=== PATIENT | female | born 1995 | race Caucasian/White ===

== ENCOUNTER 2024-02-25 15:05 | Outpatient (CLI) | payer OTHER, SELFPAY ==
--- NOTE | ~2024-02-25 | US_ITS ---
EXAMINATION: US OB <=14 wk fetus w TV DATE: 02/25/2024 15:45 INDICATION: Uncertain dates. Spotting. First trimester. TECHNIQUE: Real-time transabdominal and transvaginal pelvic ultrasound was performed. COMPARISON: None. FINDINGS: TRANSABDOMINAL ULTRASOUND: The uterus measures 7.8 x 3.6 x 4.7 cm. TRANSVAGINAL ULTRASOUND: There is no visible intrauterine gestational sac. The endometrial complex me asures 9 mm in thickness. The right ovary measures 3.6 x 2.6 x 3.37 m. The left ovary measures 3.5 x 3.0 x 2.4 cm. There is physiologic free fluid in the pelvis. IMPRESSION: 1. No visible intrauterine gestational sac, which may be normal in early . Spontaneous abor tion and ectopic are not excluded. Serial beta-hCGs are recommended. Reviewed, dictated and finalized at location A. IMPRESSION: 1. No visible intrauterine gestational sac, which may be normal in early pregn dusty. Spontaneous and ectopic are not excluded. Serial beta- hCGs are recommended.
== END 2024-02-25 15:06 ==
PROVIDERS: PCP Advanced Practice Midwife; Visit Provider Advanced Practice Midwife
DX: O26.851 Spotting complicating pregnancy, first trimester (principal); Z36.87 Encounter for antenatal screening for uncertain dates; Z3A.00 Weeks of gestation of pregnancy not specified
CPT/HCPCS: 76801; 76817

== ENCOUNTER 2024-06-26 07:48 | Outpatient (CLI) | payer OTHER, SELFPAY ==
--- NOTE | ~2024-06-26 | US_ITS ---
EXAMINATION: US OB transvaginal DATE: 06/26/2024 08:30 INDICATION: Evaluate viability. History of miscarriage. TECHNIQUE: Real-time transabdominal and transvaginal obstetric ultrasound. FINDINGS: No prior studies for comparison. The uterus measures 8.7 x 5 x 6.2 cm. There is an intrauterine gestational sac, with pole ident ified. The crown rump length measures 0.21 cm, which correlates with a estimated gestational age of 5 weeks 5 days. heart motions are detected, although heart rate not measured. There is a small subchorionic hemorrhage. Right ovary measures 3.3 x 3 x 2.9 cm and contains a 2.4 cm corpus l uteal cyst. Left ovary is not visualized. IMPRESSION: 1. Intrauterine Gestation with an EGA of 5 weeks, 5 days (EDC by current ultrasound of 02/21/2025). 2: Small subchorionic hemorrhage. Reviewed, dictated and finalized at location B. IMPRESSION: 1. Intrauterine Gestation with an EGA of 5 weeks, 5 days (EDC by current ultras ound of 02/21/2025). 2: Small subchorionic hemorrhage.
== END 2024-06-26 07:49 | disposition home or self-care (01) ==
PROVIDERS: PCP Obstetrics & Gynecology Gynecology; Visit Provider Obstetrics & Gynecology Gynecology
DX: Z87.59 Personal history of other complications of pregnancy, childbirth and the puerperium (principal); Z3A.01 Less than 8 weeks gestation of pregnancy
CPT/HCPCS: 76817

== ENCOUNTER 2024-07-09 11:21 | Outpatient (CLI) | payer OTHER, SELFPAY ==
--- NOTE | ~2024-07-09 | US_ITS ---
Pelvic ultrasound. Clinical History: First trimester , several adjacent viability Technique: Realtime transabdominal and transvaginal scanning of the pelvis was performed. Color flow Doppler and Doppler spectral analysis were performed. Findings: The uterus is anteverted, and contains an intrauterine gestation. [place]-rump length of 1.2 cm corresponds to an estimated gestational age is 7 weeks 3 days. heart rate is 157 bpm. Small subchronic hemorrhage measures 12 mm in maximum diameter. The right ovary measures 2.4 x 2.2 x 2.9 cm. No significant right ovarian or adnexal mass is seen. The left ovary is not visualized. No significant left ovarian or adnexal mass is seen. There is no evidence of free fluid in the cul de sac. Impression: Live intrauterine gestation, with estimated gestational age of 7 weeks 3 days. heart rate is 15 7 bpm. Small subchorionic hemorrhage, as detailed above. Reviewed, dictated and finalized at [facility]. Impression: Live intrauterine gestation, with estimated gestational age of 7 weeks 3 days. heart rate is 157 bpm. Small subchorionic hemorrhage, as detailed above.
== END 2024-07-09 11:22 | disposition home or self-care (01) ==
LOC: GOSHIMG 11:21
PROVIDERS: PCP Obstetrics & Gynecology Gynecology; Visit Provider Advanced Practice Midwife
DX: O36.80X0 Pregnancy with inconclusive fetal viability, not applicable or unspecified (principal); Z3A.01 Less than 8 weeks gestation of pregnancy
CPT/HCPCS: 76801; 76817

== ENCOUNTER 2024-08-09 15:43 | Outpatient (CLI) | payer OTHER, SELFPAY ==
--- NOTE | ~2024-08-09 | US_ITS ---
EXAMINATION: US OB limited DATE: 08/09/2024 16:03 INDICATION: Subchorionic hematoma TECHNIQUE: Real-time pelvic ultrasound utilizing both a transvaginal and transabdominal probe was pe rformed. The interpreting radiologist was not present for the study. COMPARISON: None. FINDINGS: The uterus measures 10.5 x 6.8 x 8.2 cm. There is an intrauterine gestational sac. A yolk sac and fe helga pole are identified. The crown rump length measures 5.2 cm, which is concordant within 1 day of t he previously estimated gestational age of 12 weeks and 0 days based upon the prior ultrasound perfor med on 06/26/2024. heart motion is identified measuring 155 beats per minute (bpm) by M-mode Dop pler. No evident subchorionic hematoma although assessment is more limited with transabdominal than w ith the prior transvaginal imaging. IMPRESSION: 1. Single living fetus with heart rate of 155 bpm. 2. [place]-rump length of 5.2 cm which is concordant within 1 day of the previously estimated gestation al age by ultrasound of 12 weeks 0 day(s) with ultrasound estimated date of delivery (JOVITA) of 02/21/25 . No evident 3. No evident subchorionic hematoma although sensitivity is likely lower with transabdominal than wit h the prior transvaginal imaging. Reviewed, dictated and finalized at location B. ER TIP INSPECTOR IMPRESSION: 1. Single living fetus with heart rate of 155 bpm. 2. [place]-rump length of 5.2 cm which is concordant within 1 day of the previous ly estimated gestational age by ultrasound of 12 weeks 0 day(s) with ultrasound estimated date of delivery (JOVITA) of 02/21/25. No evident 3. No evident subchorionic hematoma although sensitivity is likely lower with t ransabdominal than with the prior transvaginal imaging.
== END 2024-08-09 15:44 | disposition home or self-care (01) ==
LOC: MICIMG 15:44
PROVIDERS: PCP Obstetrics & Gynecology Gynecology; Visit Provider Obstetrics & Gynecology Gynecology
DX: O36.8910 Maternal care for other specified fetal problems, first trimester, not applicable or unspecified (principal); Z3A.12 12 weeks gestation of pregnancy
CPT/HCPCS: 76815

== ENCOUNTER 2024-09-28 11:22 | Outpatient (CLI) | payer BC, SELFPAY ==
--- NOTE | ~2024-09-28 | US_ITS ---
EXAMINATION: US OB /maternal detail DATE: 09/28/2024 12:29 INDICATION: anatomic survey. TECHNIQUE: Real-time ultrasound of the pelvis was performed. COMPARISON: Ultrasound 06/26/2024, 08/09/2024 FINDINGS: There is a single living fetus in breech presentation. The placenta is anterior and fundal, 5.4 cm f rom the cervix. The cervical length is 2.8 cm on transabdominal images, which is normal. heart rate is 143 beats per minute (bpm). The amniotic fluid volume is subjectively normal. The following biometric data were obtained: Biparietal diameter (BPD): 4.5 cm; head circumference (HC): 16.8 cm; abdominal circumference (AC): 14 .3 cm; femur length (FL): 3.1 cm. These measurements are concordant. Estimated weight is 300 g +/- 45 g, which correlates with the 71st percentile when 02/21/25 is u sed as estimated date of delivery. As single measurements, these parameters are each equal to the following estimated gestational ages: BPD: 19 weeks 5 days. HC: 19 weeks 3 days. AC: 19 weeks 4 days. FL: 19 weeks 4 days. estimated gestational age based solely on measurements from this exam is 19 weeks 4 days +/- 1 weeks 3 days. The cerebral ventricles, cerebellum, cisterna magna, nuchal fold, and spine are normal. The heart is normal. The diaphragm, stomach, kidneys, and bladder are normal. There are two umbilical arteries to yield a 3-vessel cord. The cord insertion is normal. IMPRESSION: 1. Single living fetus in breech presentation. 2. Estimated weight is 300 g +/- 45 g, which correlates with the 71st percentile when 02/21/25 is used as estimated date of delivery. 3. Normal anatomic survey. Reviewed, dictated and finalized at location [] RMATION TECHNOLOGY AUDIT MANAGER IMPRESSION: 1. Single living fetus in breech presentation. 2. Estimated weight is 300 g +/- 45 g, which correlates with the 71st pe rcentile when 02/21/25 is used as estimated date of delivery. 3. Normal anatomic survey.
== END 2024-09-28 11:23 | disposition home or self-care (01) ==
LOC: MICIMG 11:23
PROVIDERS: PCP Obstetrics & Gynecology Gynecology; Visit Provider Obstetrics & Gynecology Gynecology
DX: O36.63X0 Maternal care for excessive fetal growth, third trimester, not applicable or unspecified (principal); Z3A.00 Weeks of gestation of pregnancy not specified
CPT/HCPCS: 76805

== ENCOUNTER 2025-02-16 16:14 | Inpatient (IN) | payer BC, SELFPAY ==
[2025-02-16] VITALS (50 sets, daily range): BP systolic 101–154; BP diastolic 57–93; PULSE 46–110; TEMP 36.4; O2SAT 88–100; BMI 36.3
--- OUTSIDE RECORDS SUMMARY | 2025-02-16 16:18 | XMS_ITS | Clinical Summary ---
Author Organization [facility] Address [address] [place] [facility] [place] [address] Care Team Providers Care Care Administrative Tech Name Role Phone Unknown, Notinfile Primary Care Provider Unavail able Allergies No known active allergies Medications fexofenadine (Milla Allergy) 180 mg tablet daily Active triamcinolone (Nasacort) 55 mcg nasal inhaler daily Active olopatadine (PATADAY) 0.2 % ophthalmic solution daily Active EPINEPHrine (Auvi-Q) 0.3 mg/0.3 mL auto-injection syringe as directed 07/30/2022 Active albuterol HFA (PROVENTIL HFA,VENTOLIN HFA,PROAIR HFA) 90 mcg/actuation inhaler 2 puff(s) Active Active Problems No known active problems Immunizations Immunization Administration Dates Next Due Tdap 01/26/2023,04/29/2013 Social History Tobacco Use Types Packs/Day Years Used Date Smoking Tobacco: Never Smokeless Tobacco: Never Personal Safety Answer Date Recorded Getting School Help Needed Not on file 11/29 Comments Unknown Sex and Gender Information Value Date Recorded Sex Assigned at Not on file Legal Sex Female 9:15 AM CDT Gender Identity Not on file Sexual Orientation Not on file Obstetrics History Last Filed Vital Signs Vital Sign Reading Time Taken Comments Blood Pressure 104/66 01/26/2023 9:24 AM CDT Pulse 97 01/26/2023 9:24 AM CDT Temperature 35.9 C (96.7 F) 01/26/2023 9:24 AM CDT Respiratory Rate 16 01/26/2023 9:24 AM CDT Oxygen Saturation 99% 01/26/2023 9:24 AM CDT Inhaled Oxygen Concentration - - Weight 108.9 kg (240 lb) 01/26/2023 9:24 AM CDT Height 180.3 cm (5' 11 ) 01/26/2023 9:24 AM CDT Body Mass Index 33.47 01/26/2023 9:24 AM CDT Plan of Treatment Health Maintenance Due Date Last Done Comments Cervical Cancer Screening 1995 Depression Screening 1995 Hepatitis C Screening 1995 Varicella Vaccines (1 of 2 - 13+ 2-dose series) 01/20/2008 Hepatitis B Screening 2013 Regular Well Visit/Exam 18-64 2013 Covid-19 Vaccine (2023-2 5 season) 2024 10/03/2021, 01/24/2021, 01/02/2021 Influenza Vaccine (Season Ended) 2025 DTaP/Tdap/Td Vaccine (3 - Td or Tdap) 01/26/2033 01/26/2023, 04/29/2013 HPV Vaccines Aged Out No longer eligi ble based on patient's age to complete this topic Pneumococcal vaccine <65 Aged Out No longer eligible based on patient's age to complete this topic Insurance [facility]PPO Address: [facility] [address] [place] [address] Care Teams Care Administrative Tech Relationship Specialty Start Date End Date Unknown, Notinfile PCP - General 01/26/23
--- OUTSIDE RECORDS SUMMARY | 2025-02-16 16:18 | XMS_ITS ---
Author Organization [facility] [place] ([address]) Address [address] [place] [address] Care Team Providers Care Exterminator Helper Name Role Phone Mario Jorgensen Unavailable [phone] REASON FOR VISIT SOB with exercise and allergen triggers, keeps EBONI on hand; using 1-2 times a month, ARC , continues Milla and Nasacort, continues on SCIT without issue; again recently found to be , looking for further recs regarding SCIT dosing Medications Medication SIG (Take, Route, Frequency, Duration) Notes Start Date End Date Status CETIRIZINE Not-Takin g metFORMIN HCl ER 500 MG 2 tabs orally once a day Active Cetirizine HCl *Please review and pick correct strength-formulat ion from [employer] options. If intended option is not shown, discontinue and re-order from Quick Search* Active Auvi-Q 0.3 MG/0.3ML as directed intramuscularly once for 30 days Active Nasacort Allergy 24HR 55 MCG/ACT 1 spray(s) intranasally once a day Active 27-1 MG 1 tablet Orally Once a day Active SIT (TRADITIONAL) variable per schedule per schedule for 999 days Active AUVI -Q 0.3 mg as directed intramuscularly once for 30 days Active Milla Allergy 180 MG 1 tab(s) orally once a day Not-Taking Olopatadine HCl 0.2 % 1 gtt in each affected eye once a day for 10 day(s) Active AEROCHAMBER MDI SPACER - MOUTHPIECE (ADULT) N/A As directed PO Per asthma action plan for 30 day(s) Active ALBUTEROL (EQV-PROAIR HFA) 90 mcg/inh 2 puff(s) inhaled Q4-6 hours, PRN and per the asthma action plan for 30 day(s) Active NASACORT ALLERGY 24HR 55 mcg/inh 1 spray(s) intranasally once a day Active MILLA 24 HOUR ALLERGY 180 mg 1 tab(s) orally once a day Active NASAL WASHES N/A as directed intranasally as needed for 30 Active OLOPATADINE OPHTHALMIC 0.2% 1 gtt in each affected eye once a day for 10 day(s) Active METFORMIN 500 mg 1 tab(s) orally once a day Not-Taking Encounters Encounter Location Date Provider Diagnosis [facility] [address] [place] [address] 12/28/2024 Mario Jorgensen Allergic rhinitis du e to pollen J30.1 ; Allergic rhinitis due to animal (cat) (dog) hair and dander J30.81 ; Other allergic rhinitis J30.89 ; Other chronic allergic conjunctivitis H10.45 and Shortness of breath R06.02 Assessments Encounter Date Diagnosis (ICD Code) Assessment Notes Treatment Notes Treatment Clinical Notes Section Notes 12/28/2024 Allergic rhinitis due to pollen (ICD-10 - J30.1) Tri clearly suffers from atopic disease based upon our skin testing. - continues on medications with improved symptoms as well as SCIT - tolerating SCIT without issue. She recently again found out she was . Will plan to hold MM at 1:1, 0.1 moving forward until post-. Current on new vial build-up at the dose so plan to receiving that dose for one more week before moving [facility] the [facility]. Procedure tolerated without issue - Keep AIE on hand 2 hours after SCIT. Continue to premedicate with antihistamines. Return for SCIT per schedule and 4 months for E&M. Increase SCIT frequency in peak seasons PRN 12/28/2024 Allergic rhinitis due to animal (cat) (dog) hair and dander (ICD-10 - J30.81) Follow allergen avoidance, meds and continue SCIT as an adjunctive treatment to current regimen 12/28/2024 Other allergic rhinitis (ICD-10 - J30.89) 12/28/2024 Other chronic allergic conjunctivitis (ICD-10 - H10.45) Given ocular signs and symptoms I encouraged allergy avoidance measures and meds as above. Continue intraocular antihistamine/m ast cell stabilizer, PRN and continue SCIT as an adjunctive measure 12/28/2024 Shortness of breath (ICD-10 - R06.02) SOB described as difficulty getting air in, with associated wheezing when running outside - Initial Spirometry is normal with FVL suggestive of VCD and slight small airway obstruction. VCD handout already provided - She has felt benefit with use of VCD exercises. Generally using EBONI ocne a month with resoluton. Spriometry today was comparable to last last with mild blunting noted on spirometry. If EBONI use persists consider addition of Singulair and/or ICS trial if symptoms worsen given she has history of allergen induced symptoms as well. Will continue to monitor. Cotinue SCIT as above Plan Of Treatment Medication Medication Name Sig Start Date Stop Date Notes SIT (TRADITIONAL) variable per schedule per schedule for 999 days AUVI -Q 0.3 mg as directed intramus cularly once for 30 days AEROCHAMBER MDI SPACER - MOUTHPIECE (ADULT) N/A As directed PO Per asthma action plan for 30 day(s) ALBUTEROL (EQV-PROAIR HFA) 90 mcg/inh 2 puff(s) inhaled Q4-6 hours, PRN and per the asthma action plan for 30 day(s) NASACORT ALLERGY 24HR 55 mcg/inh 1 spray(s) intranasally once a day IMLLA 24 HOUR ALLERGY 180 mg 1 tab(s) orally once a day NASAL WASHES N/A as directed intranas ally as needed for 30 OLOPATADINE OPHTHALMIC 0.2% 1 gtt in eac h affected eye once a day for 10 day(s) Treatment Notes Assessment Notes Allergic rhinitis due to pollen Tri clearly suffers from atopic disease based upon our skin testing. - continues on medications with improved symptoms as well as SCIT - tolerating SCIT without issue. She recently again found out she was . Will plan to hold MM at 1:1, 0.1 moving forward until post-. Current on new vial build-up at the dose so plan to receiving that dose for one more week before moving out the critical access hospital. Procedure tolerated without issue - Keep AIE on hand 2 hours after SCIT. Continue to premedicate with antihistamines. Return for SCIT per schedule and 4 months for E&M. Increase SCIT frequency in peak seasons PRN Allergic rhinitis due to ani mal (cat) (dog) hair and dander Follow allergen avoidance, meds and continue SCIT as an adjunctive treatment to current regimen Other chronic allergic conjunctivitis Gi shiraz ocular signs and symptoms I encouraged allergy avoidance measures and meds as above. Continue intraocular antihistamine/mast cell stabilizer, PRN and continue SCIT as an adjunctive measure Shortness of breath SOB described as difficulty getting air in, with associated wheezing when running outside - Initial Spirometry is normal with FVL suggestive of VCD and slight small airway obstruction. VCD handout already provided - She has felt benefit with use of VCD exercises. Generally using EBONI ocne a month with resoluton. Spriometry today was comparable to last last with mild blunting noted on spirometry. If EBONI use persists consider addition of Singulair and/or ICS trial if symptoms worsen given she has history of allergen induced symptoms as well. Will continue to monitor. Cotinue SCIT as above Next Appt Details Follow Up: as scheduled, 6 m [facility], Reason: SCIT, Evaluation and Management Progress Notes * Mayela BOYDTammyB: 5 (30 yo F)Acc No.[id number]:12/28/2024 Progress Notes Patient: Tri OSBORN Provider: Chapin Jorgensen PA-C :1995 A ge:29 Y S ex:Female Date:12/28/2024 Address:[address] [place], [place] [id number] Subjective: * Chief Complaints: * 1 . SOB with exercise and allergen triggers, keeps EBONI on hand; using 1-2 times a month. 2. ARC , continues Milla and Nasacort, continues on SCIT without issue; again recently found to be , looking for further recs regarding SCIT dosing. * HPI: * Introduction: I had the pleasure of seeing A oneida Boyd, 29 y/o female with history of exercise-induced asthma and ARC who returns for interval evaluation and management and SCIT. She returns doing well. Aeroallergen skin testing was completed at first visit, and was positive to multiple seasonal and perennial allergens. Continues Milla and Nasacort with benefit. She continues on SCIT with noted improvement on MM dosing. Initial symptoms started around 2014 with dogs and cats first, then progressed to seasonal symptoms. She does have constant eye watering, worse in Winter or when she travels to different environments. There are 2 cats in the home, symptoms of lip swelling/itching when around her face, itching and swelling. Notes only ocular symptoms if she touches them then touches her face. Dogs cause rhinorrhea, sneezing, itchy watery eyes, and congestion. She recently found out she was again after prior miscarriage and is looking for further recs regarding SCIT. She notes chest tightness around prolonged animal exposure, but symptoms have improved since initial visit. Using EBONI approx once a month in additional to VCD exercises she feels has been beneficial. Initial spirometry with mild obstruction on end exhalation, and evidence of VCD. Otherwise, normal. No interval wheezing. Historically with SOB, difficulty getting air in. Present with outdoor running and indoor allergen exposure. Feels VCD exercises has been helpful. Seldomly uses EBONI. Minimal concerns noted today. Today, she reports no fevers, chills, night sweats or other constitutional symptoms. The patient is here for scheduled specific allergen immunotherapy. Please see the attached specialty form regarding the specifics of the administration of these vaccines. As per our protocol, they must undergo a screening health questionnaire (medication changes, reaction(s) to last immunotherapy dose(s), current health status, ACT (if appropriate), self-injectable epinephrine on patient(?) and peak flow (if appropriate)). Also, the patient must wait in our office for 30 minutes after receiving immunotherapy. Furthermore, every patient must have an epinephrine pen (self-injectable) with them at the time of administration--and carry if for the following 1.5 hours after they leave our office. The patient must also have taken their antihistamine the day of the injection, preferably 2 hours prior. The consent form for SCIT (subcutaneous immunotherapy) is on file. * ROS: A LLERGY: Positive p er the HPI and history, otherwise unremarkable.?runny nose Y es. s cratchy throat N o. i tchy eyes Y es. e ar fullness?No. s inus congestion Y es. S PECIAL SENSES: Positve for n one. c ataracts N o. g laucoma?No. l oss of hearing N o. i tching in ears N o. r inging in ears N o.?loss of balance N o. l oss of smell N o. d ry eyes N o. e xcessive tearing Yes. i tching eyes Y es. l oss of taste N o. c onjunctivitis N o. e ar infections N o. C ONSTITUTIONAL: weight gain Y es. l oss of appetite N o. f ever?No. w eakness N o. w eight loss N o. f atigue N o. n ight sweats?No. P ositive for n one. E NT: cold Y es. c ough N o. e pistaxis N o. h earing loss N o. c hange in voice N o. s ore throat N o. r inging in ears?No. s inus pain N o. P ositive p er the HPI and history, otherwise unremarkable. R ESPIRATORY: shortness of breath Y es. c hest pain N o. c hest congestion N o. c ough N o. P ositive p er the HPI and history, otherwise unremakable. O PHTHALMOLOGY: diminished vision N o. e ye irritation Y es. d rainage from eyes Y es. b lurring of vision N o. s easonal eye sx Y es. P ositive for p er the HPI and history, othewise unremarkable. i tching Y es. s ensitivity to light N o. d ischarge N o. w atering Y es. s welling of the eyelids?No. r edness Y es. E NDOCRINOLOGY: fatigue N o. p olydipsia Y es. p olyuria N o. w eight loss N o. s leep disturbance N o. c old intolerance N o. h eat intolerance N o. d iabetes N o. P ositive for n one. C ARDIOLOGY: chest pain N o. p alpitations N o. l eg edema?No. d izziness N o. s hortness of breath Y es. P ositive for n one. G ASTROENTEROLOGY: dysphagia N o. a bdominal pain N o. n ausea?No. v omiting N o. c onstipation N o. d iarrhea N o. b lood in stool?No. i ndigestion N o. h emorrhoids N o. P ositive for n one. ? U ROLOGY: difficulty urinating N o. b lood in urine N o. f requent urination N o. u rinary incontinence Y es. r ecurrent UTI N o. P ositive for n one. D ERMATOLOGY: rash N o. m ole N o. l umps N o. d ry or sensitive skin N o. h seda (urticaria) N o. a cne N o. s kin cancer N o. P ositive for p er the HPI and history, otherwise unremakable. N EUROLOGY: headache Y es. t ingling numbness N o. s eizures N o. i nsomnia N o. m mckinley loss N o. d izziness N o. g ait abnormality N o. P ositive for n one. H EMATOLOGY/LYMPH: Positive for n one. M USCULOSKELETAL: joint swelling N o. j oint pain N o. l eg cramps N o. j oint stiffness Y es. s ciatica N o. o steoporosis N o. f racture N o. c arpal tunnel N o. g out N o. P ositive for n one. ? P SYCHOLOGY: high stress level Y es. d epression Y es. s leep disturbances N o. s uicidal ideation N o. e ating disorder N o. m ental or physical abuse N o. a nxiety N o. P ositive for n one. F EMALE REPRODUCTIVE: heavy periods N o. h ot flashes N o. a bnormal vaginal discharge N o. s exually active Y es. i nfertility N o. f requent yeat infections N o. p elvic pain N o. b reast pain N o. n ipple discharge No. A re you ? N o. A re you planning on a future pregancy? Y es. ? A ll other review of systems per the HPI and history, othwise unremarkable. * Medical History: * Medications: T aking OLOPATADINE OPHTHALMIC 0.2% solution 1 gtt in each affected eye once a day , Taking ALBUTEROL (EQV-PROAIR HFA) 90 mcg/inh aerosol 2 puff(s) inhaled Q4-6 hours, PRN and per the asthma action plan , Taking AEROCHAMBER MDI SPACER - MOUTHPIECE (ADULT) N/A Spacer for MDI use As directed PO Per asthma action plan , Taking NASAL WASHES N/A 1 quart of sterilized tap water or distilled water, 1 tsp NaCl, 1 pinch of baking soda as directed intranasally as needed , Taking MILLA 24 HOUR ALLERGY 180 mg tablet 1 tab(s) orally once a day , Taking NASACORT ALLERGY 24HR 55 mcg/inh spray 1 spray(s) intranasally once a day , Taking AUVI -Q 0.3 mg kit as directed intramuscularly once , Taking SIT (TRADITIONAL) variable see record per schedule per schedule , Taking 27-1 MG Tablet 1 tablet Orally Once a day , Taking Olopatadine HCl 0.2 % Solution 1 gtt in each affected eye once a day , Taking Nasacort Allergy 24HR 55 MCG/ACT Aerosol 1 spray(s) intranasally once a day , Taking Auvi-Q 0.3 MG/0.3ML Solution Auto-injector as directed intramuscularly once , Taking Cetirizine HCl , Notes to Pharmacist: *Please review and pick correct strength-formulation from [employer] options. If intended option is not shown, discontinue and re-order from Quick Search*, Taking metFORMIN HCl ER 500 MG Tablet Extended Release 24 Hour 2 tabs orally once a day , Not-Taking/PRN Milla Allergy 180 MG Tablet 1 tab(s) orally once a day , Not-Taking/PRN CETIRIZINE , Not- Taking/PRN METFORMIN 500 mg tablet, extended release 1 tab(s) orally once a day Objective: * Vitals: * Examination: G eneral examination: General appearance: p leasant, well-developed, well-nourished, female, in no apparent distress, speaking in full sentences. HEENT: p upils equal, round, and reactive to light and accommodation, conjunctiva are normal bilaterally, no tenderness to palpation of the sinuses, TM's without evidence of acute infection, turbinates 3+ swollen and pale inferiorly bilaterally, clear rhinorrhea is present, no polyps noted, no septal perforation, posterior oropharynx is erythematous and cobblestoning is present, erythema on pharyngeal wall, no exudates, no tongue swelling, and uvula is midline. Oral cavity: n ormal, no lesions. Neck, thyroid : s upple, non-tender, no anterior cervical lymphadenopathy. Heart: R RR, S1-S2, no murmurs, no rubs, no gallops. Lungs: c lear to auscultation in all lung pantoja, no wheezes or crackles. Neurologic exam: u nremarkable. Skin: n ormal, no rash, dermatographism, urticaria, angioedema. Peripheral pulses: n ormal (2+) bilaterally. Back: n ormal. Extremities: n ormal ROM, no clubbing, no cyanosis, no edema. Assessment: * Assessment: 1. A llergic rhinitis due to pollen - J30.1 (Primary) 2 . A llergic rhinitis due to animal (cat) (dog) hair and dander - J30.81 3 . O ther allergic rhinitis - J30.89 4 . O ther chronic allergic conjunctivitis - H10.45 5 . S hortness of breath - R06.02 Plan: * Treatment: 2. A llergic rhinitis due to animal (cat) (dog) hair and dander Notes: Follow allergen avoidance, meds and continue SCIT as an adjunctive treatment to current regimen 3. O ther chronic allergic conjunctivitis Continue OLOPATADINE OPHTHALMIC solution, 0.2%, 1 gtt, in each affected eye, once a day, 10 day(s).? Notes: Given ocular signs and symptoms I encouraged allergy avoidance measures and meds as above. Continue intraocular antihistamine/mast cell stabilizer, PRN and continue SCIT as an adjunctive measure 4. S hortness of breath Continue ALBUTEROL (EQV-PROAIR HFA) aerosol, 90 mcg/inh, 2 puff(s), inhaled, Q4-6 hours, PRN and per the asthma action plan, 30 day(s), 1, Refills 0; C ontinue AEROCHAMBER MDI SPACER - MOUTHPIECE (ADULT) Spacer for MDI use, N/A, As directed, PO, Per asthma action plan, 30 day(s), 1, Refills 11.? Notes: SOB described as difficulty getting air in, with associated wheezing when running outside - Initial Spirometry is normal with FVL suggestive of VCD and slight small airway obstruction. VCD handout already provided - She has felt benefit with use of VCD exercises. Generally using EBONI ocne a month with resoluton. Spriometry today was comparable to last last with mild blunting noted on spirometry. If EBONI use persists consider addition of Singulair and/or ICS trial if symptoms worsen given she has history of allergen induced symptoms as well. Will continue to monitor. Cotinue SCIT as above * Procedure Codes: G 8427 DOC MEDS VERIFIED W/[place], [address] PT-FOCUSED HLTH RISK ASSMT, 16948 Bertrand Jorgensen - Incident-to, 62809 IMMUNOTHERAPY INJECTIONS, A4617 Mouthpiece, 13433 RESPIRATORY FLOW VOLUME LOOP * Preventive Medicine: Counseling: E xercise C onsider EBONI use PRN, prior to exercise as per the asthma action plan. M edication instruction: N sonia steroid instruction: avoid septum, Watch for side effects of prescribed medications. E ducation: O ur staff spent an additional 30 minutes in direct contact with the patient educating them on their current diagnoses and proper treatment and prevention of symptoms and the proper use of medications, Our staff formulated an asthma action plan with the patient/family. E ducation 2: O ur staff discussed the appropriate allergen avoidance measures and medication utilization including upper airway hygiene with daily nasal washes given the patient's clinical status and diagnoses. P atient education material sent to portal? Y es C are goal follow up plan Above Normal BMI Follow-up L ifestyle education regarding diet B P Management: FIRST HYPERTENSIVE BP READING FOLLOW-UP PLAN: F ollow-up 1 month REFERRAL TO ALTERNATIVE / PRIMARY CARE PROVIDER: R eferral to general practitioner * Follow Up: a s scheduled, 6 months (Reason: SCIT, Evaluation and Management) * Billing Information: * Visit Code: 53521 Office Visit, Est Pt., Level 4. Modifiers: 25 * Procedure Codes: G8427 DOC MEDS VERIFIED W/[place]. [address] PT-FOCUSED HLTH RISK ASSMT. 05341 Bertrand Jorgensen - Incident-to. 72623 IMMUNOTHERAPY INJECTIONS. A4617 Mouthpiece. 85091 RESPIRATORY FLOW VOLUME LOOP. * Electronic signature of Bertrand Jorgensen PA-C on 02/16/2025 at 04:17 PM CDT Sign off status: Pending * Provider: Chapin Jorgensen PA-C Date: 0 12/28/2024 Generated for Salazar Vásquez/Leila on: 0 02/16/2025 04:17 PM CDT History and Physical Notes * HPI (History of Present Illness) Category Sub-Category Detail Notes Category Notes *Introduction I had the pleasure of seeing Tri Boyd, 29 y/o female with history of exercise-induced asthma and ARC who returns for interval evaluation and management and SCIT. She returns doing well. Aeroallergen skin testing was completed at first visit, and was positive to multiple seasonal and perennial allergens. Continues Milla and Nasacort with benefit. She continues on SCIT with noted improvement on MM dosing. Initial symptoms started around 2014 with dogs and cats first, then progressed to seasonal symptoms. She does have constant eye watering, worse in Winter or when she travels to different environments. There are 2 cats in the home, symptoms of lip swelling/itching when around her face, itching and swelling. Notes only ocular symptoms if she touches them then touches her face. Dogs cause rhinorrhea, sneezing, itchy watery eyes, and congestion. She recently found out she was again after prior miscarriage and is looking for further recs regarding SCIT. She notes chest tightness around prolonged animal exposure, but symptoms have improved since initial visit. Using EBONI approx once a month in additional to VCD exercises she feels has been beneficial. Initial spirometry with mild obstruction on end exhalation, and evidence of VCD. Otherwise, normal. No interval wheezing. Historically with SOB, difficulty getting air in. Present with outdoor running and indoor allergen exposure. Feels VCD exercises has been helpful. Seldomly uses EBONI. Minimal concerns noted today. Today, she reports no fevers, chills, night sweats or other constitutional symptoms The patient is here for scheduled specific allergen immunotherapy. Please see the attached specialty form regarding the specifics of the administration of these vaccines. As per our protocol, they must undergo a screening health questionnaire (medication changes, reaction(s) to last immunotherapy dose(s), current health status, ACT (if appropriate), self-injectable epinephrine on patient(?) and peak flow (if appropriate)). Also, the patient must wait in our office for 30 minutes after receiving immunotherapy. Furthermore, every patient must have an epinephrine pen (self-injectable) with them at the time of administration--and carry if for the following 1.5 hours after they leave our office. The patient must also have taken their antihistamine the day of the injection, preferably 2 hours prior. The consent form for SCIT (subcutaneous immunotherapy) is on file. Examination Category Sub-Category Detail Notes Category Not es General examination HEENT: pupils equal , round, and reactive to light and accommodation, conjunctiva are normal bilaterally, no tenderness to palpation of the sinuses, TM's without evidence of acute infection, turbinates 3+ swollen and pale inferiorly bilaterally, clear rhinorrhea is present, no polyps noted, no septal perforation, posterior oropharynx is erythematous and cobblestoning is present, erythema on pharyngeal wall, no exudates, no tongue swelling, and uvula is midline Neck, thyroid : supple, non-tender, no anterior cervical lymphadenopathy Heart: RRR, S1-S2, no murmu rs, no rubs, no gallops Lungs: clear to auscultatio n in all lung pantoja, no wheezes or crackles Extremities: normal ROM, no clubb ing, no cyanosis, no edema General appearance: pleasant, well-devel oped, well-nourished, female, in no apparent distress, speaking in full sentences Skin: normal, no rash, ada matographism, urticaria, angioedema Neurologic exam: unremarkable Oral cavity: normal, no lesions Peripheral pulses: normal (2+) bilatera lly Back: normal
--- OUTSIDE RECORDS SUMMARY | 2025-02-16 16:18 | XMS_ITS | Patient Health Record ---
Author Organization [facility] ([address]) Address [address] [place] [address] Care Team Providers Care Unloader Operator Name Role Phone Mario Jorgensen Unavailable [phone] ZekeBinh Unavailable [phone] Jojo Carbone Unavailable [phone] [facility], Provider Unavailable Unavailab le Allergies No Known Allergies Results Component Value Reference Range Notes Spirometry Reviewed date:07/06/2024 11:15:42 AM Interpretation:Normal Performing Lab: Notes/Report: Normal SpiroPreBronchodilator_FVC 4.81 SpiroPostBronchodilator_FEF25_75 0 SpiroPreBronchodilator_FEF25_75 3.55 SpiroPreBronchodilator_FEV1 3.83 SpiroPrecentPredictionPost_FEF25_75 0 SpiroPrecentPredictionPost_FEV1 0 SpiroPrecentPredictionPost_FEV1_OVER_FVC 0 SpiroPrecentPredictionPost_FVC 0 SpiroPrecentPredictionPre_FEF25_75 86 SpiroPrecentPredictionPre_FEV1 99.5 SpiroPrecentPredictionPre_FEV1_OVER_FVC 96.1 SpiroPrecentPredictionPre_FVC 103.7 SpiroPredicted_FEF25_75 4.13 SpiroPreBronchodilator_FEV1_OVER_FVC 79.62 SpiroPreBronchodilator_PEF 7.47 SpiroPostBronchodilator_FVC 0 SpiroPostBronchodilator_FEV1 0 SpiroPostBronchodilator_FEV1_OVER_FVC 0 SpiroPostBronchodilator_PEF 0 SpiroPredicted_FVC 4.64 SpiroPredicted_FEV1 3.85 SpiroPredicted_FEV1_OVER_FVC 82.84 SpiroPredicted_PEF 7.38 Reason For Referral No Information Medications Medication SIG (Take, Route, Frequency, Duration) Notes Start Date End Date Status 27-1 MG 1 tablet Orally Once a day Active ALBUTEROL (EQV-PROAIR HFA) 90 mcg/inh 2 puff(s) inhaled Q4-6 hours, PRN and per the asthma action plan for 30 day(s) Active OLOPATADINE OPHTHALMIC 0.2% 1 gtt in each affected eye once a day for 10 day(s) Active AEROCHAMBER MDI SPACER - MOUTHPIECE (ADULT) N/A As directed PO Per asthma action plan for 30 day(s) Active METFORMIN 500 mg 1 tab(s) orally once a day Not-Taking CETIRIZINE Not-Takin g metFORMIN HCl ER 500 MG 2 tabs orally once a day Active SIT (TRADITIONAL) variable per schedule per schedule for 999 days Active Cetirizine HCl *Please review and pick correct strength-formulat ion from MediSwipe options. If intended option is not shown, discontinue and re-order from Quick Search* Active AUVI -Q 0.3 mg as directed intramuscularly once for 30 days Active Auvi-Q 0.3 MG/0.3ML as directed intramuscularly once for 30 days Active NASACORT ALLERGY 24HR 55 mcg/inh 1 spray(s) intranasally once a day Active Nasacort Allergy 24HR 55 MCG/ACT 1 spray(s) intranasally once a day Active MILLA 24 HOUR ALLERGY 180 mg 1 tab(s) orally once a day Active Milla Allergy 180 MG 1 tab(s) orally once a day Not-Taking NASAL WASHES N/A as directed intranasally as needed for 30 Active Olopatadine HCl 0.2 % 1 gtt in each affected eye once a day for 10 day(s) Active Immunizations Vaccine Route Administration Date Status Comme nts Covid 19 (Pfizer) Unknown 01/02/2021 Administered Covid 19 (Pfizer) Unknown 01/24/2021 Administered Covid 19 (Pfizer) Unknown 10/03/2021 Administered DTaP < 7 y/o Unknown 02/20/2000 Administered Portal Inf ormation Hepatitis B (08-17) Unknown 1995 Administered Por helga Information Influenza Unknown 08/31/2021 Administered Portal Infor mation NOC PedvaxHIB Unknown 1995 Administered Portal In formation NOC Tdap Unknown 04/29/2013 Administered Portal Infor mation Social History Tobacco Use: Social History Observation Description Date Details (start date - stop date) Never Smoker NA - NA Smoking Smart Form: Question Answer Notes Are you a: never smoker Tobacco Control (Standard) Question Answer Notes Tobacco use: Nonsmoker Problems Problem Type SNOMED Code ICD Code Onset Dates Problem Status W/U Status Risk Notes Problem Shortness of breath (386583016) Shortness of breath (R06.02) Active confirmed Problem Chronic allergic conjunctivitis (97572469) Other chronic allergic conjunctivitis (H10.45) Active confirmed Problem Allergic rhinitis caused by pollen (disorder) (51383261) Allergic rhinitis due to pollen (J30.1) Active confirmed Problem Allergic rhinitis caused by animal hair and dander (141693186443061) Allergic rhinitis due to animal (cat) (dog) hair and dander (J30.81) Active confirmed Problem Other allergic rhinitis (J30.89) Active confirmed Problem Allergic rhinitis caused by pollen (disorder) (13494365) Allergic rhinitis due to pollen (J30.1) Active confirmed Problem Allergic rhinitis caused by animal hair and dander (466107277173909) Allergic rhinitis due to animal (cat) (dog) hair and dander (J30.81) Active confirmed Problem Other allergic rhinitis (J30.89) Active confirmed Problem Chronic allergic conjunctivitis (78824154) Other chronic allergic conjunctivitis (H10.45) Active confirmed Vital Signs Oximetry 98 % 07/06/2024 Blood pressure diastolic 74 mm Hg 07/06/2024 Height 71 in 07/06/2024 Blood pressure systolic 117 mm Hg 07/06/2024 Weight 237.8 lbs 07/06/2024 BMI 33.16 kg/m2 07/06/2024 Encounters Encounter Location Date Provider Diagnosis [address] [address] 03/13/2024 Provider [facility] Allergic rhinitis due to pollen J30.1 ; Other chronic allergic conjunctivitis H10.45 and Shortness of breath R06.02 [facility] [address] [address] 03/02/2024 Mario Jorgensen Allergic rhinitis du e to pollen J30.1 ; Allergic rhinitis due to animal (cat) (dog) hair and dander J30.81 ; Other allergic rhinitis J30.89 ; Other chronic allergic conjunctivitis H10.45 and Shortness of breath R06.02 [facility] [address] [place] [phone] 04/06/2024 Binh Alanis Allergic rhinitis du e to pollen J30.1 ; Allergic rhinitis due to animal (cat) (dog) hair and dander J30.81 ; Other allergic rhinitis J30.89 and Other chronic allergic conjunctivitis H10.45 [facility] [address] [place] [phone] 04/13/2024 Binh Alanis Allergic rhinitis du e to pollen J30.1 ; Allergic rhinitis due to animal (cat) (dog) hair and dander J30.81 ; Other allergic rhinitis J30.89 and Other chronic allergic conjunctivitis H10.45 [facility] [address] [place] [phone] 04/20/2024 Binh Alanis Allergic rhinitis du e to pollen J30.1 ; Allergic rhinitis due to animal (cat) (dog) hair and dander J30.81 ; Other allergic rhinitis J30.89 and Other chronic allergic conjunctivitis H10.45 [facility] [address] [place] [phone] 05/26/2024 Binh Alanis Allergic rhinitis du e to pollen J30.1 ; Allergic rhinitis due to animal (cat) (dog) hair and dander J30.81 ; Other allergic rhinitis J30.89 and Other chronic allergic conjunctivitis H10.45 [facility] [address] [place] [phone] 06/23/2024 Binh Alanis Allergic rhinitis du e to pollen J30.1 ; Allergic rhinitis due to animal (cat) (dog) hair and dander J30.81 ; Other allergic rhinitis J30.89 and Other chronic allergic conjunctivitis H10.45 [facility] [address] [place] [phone] 07/06/2024 Mario Jorgensen Allergic rhinitis du e to pollen J30.1 ; Allergic rhinitis due to animal (cat) (dog) hair and dander J30.81 ; Other allergic rhinitis J30.89 ; Other chronic allergic conjunctivitis H10.45 and Shortness of breath R06.02 [facility] [address] [place] [address] [employer] [address] [address] 07/13/2024 Binh Alanis Allergic rhinitis du e to pollen J30.1 ; Allergic rhinitis due to animal (cat) (dog) hair and dander J30.81 ; Other allergic rhinitis J30.89 and Other chronic allergic conjunctivitis H10.45 [facility] [address] [place] [address] [employer] [address] [address] 08/10/2024 Binh Alanis Allergic rhinitis du e to pollen J30.1 ; Allergic rhinitis due to animal (cat) (dog) hair and dander J30.81 ; Other allergic rhinitis J30.89 and Other chronic allergic conjunctivitis H10.45 [facility] [address] [place] [address] [employer] [address] [address] 09/07/2024 Binh Alanis Allergic rhinitis du e to pollen J30.1 ; Allergic rhinitis due to animal (cat) (dog) hair and dander J30.81 ; Other allergic rhinitis J30.89 and Other chronic allergic conjunctivitis H10.45 [facility] [address] [place] [address] [employer] [address] [address] 10/07/2024 Binh Alanis Allergic rhinitis du e to pollen J30.1 ; Allergic rhinitis due to animal (cat) (dog) hair and dander J30.81 ; Other allergic rhinitis J30.89 and Other chronic allergic conjunctivitis H10.45 [facility] [address] [place] [address] [employer] [address] [place] [phone] 11/11/2024 Binh Alanis Allergic rhinitis du e to pollen J30.1 ; Allergic rhinitis due to animal (cat) (dog) hair and dander J30.81 ; Other allergic rhinitis J30.89 and Other chronic allergic conjunctivitis H10.45 [facility] [address] [place] [address] [employer] [address] [place] [phone] 12/08/2024 Binh Alanis Allergic rhinitis du e to pollen J30.1 ; Allergic rhinitis due to animal (cat) (dog) hair and dander J30.81 ; Other allergic rhinitis J30.89 and Other chronic allergic conjunctivitis H10.45 [facility] [address] [place] [address] 03/24/2024 Mario Jameel [facility] [place] [address] [place] [address] 07/01/2024 Mario Arcemaxwell [facility] [address] [place] [address] 09/07/2024 Mario Jorgensen Assessments Encounter Date Diagnosis (ICD Code) Assessment Notes Treatment Notes Treatment Clinical Notes Section Notes 03/02/2024 Allergic rhinitis due to pollen (ICD-10 - J30.1) Tri clearly suffers from atopic disease based upon our skin testing. - continues on medications with improved symptoms as well as SCIT - tolerating SCIT without issue. She recently found out she was . Will decrease MM to 1:1, 0.1 moving forward until post-. Procedure tolerated without issue - Keep AIE on hand 2 hours after SCIT. Continue to premedicate with antihistamines. Return for SCIT per schedule and 4 months for E&M. Increase SCIT frequency in peak seasons PRN 03/02/2024 Allergic rhinitis due to animal (cat) (dog) hair and dander (ICD-10 - J30.81) Follow allergen avoidance, meds and continue SCIT as an adjunctive treatment to current regimen 03/13/2024 Allergic rhinitis due to pollen (ICD-10 - J30.1) 04/06/2024 Allergic rhinitis due to pollen (ICD-10 - J30.1) 04/13/2024 Allergic rhinitis due to pollen (ICD-10 - J30.1) 04/20/2024 Allergic rhinitis due to pollen (ICD-10 - J30.1) 05/26/2024 Allergic rhinitis due to pollen (ICD-10 - J30.1) 06/23/2024 Allergic rhinitis due to pollen (ICD-10 - J30.1) 07/06/2024 Allergic rhinitis due to pollen (ICD-10 - [...] one more week before moving out the mothly. Procedure tolerated without issue - Keep AIE on hand 2 hours after SCIT. Continue to premedicate with antihistamines. Return for SCIT per schedule and 4 months for E&M. Increase SCIT frequency in peak seasons PRN 07/06/2024 Allergic rhinitis due to animal (cat) (dog) hair and dander (ICD-10 - J30.81) Follow allergen avoidance, meds and continue SCIT as an adjunctive treatment to current regimen 07/13/2024 Allergic rhinitis due to pollen (ICD-10 - J30.1) 08/10/2024 Allergic rhinitis due to pollen (ICD-10 - J30.1) 09/07/2024 Allergic rhinitis due to pollen (ICD-10 - J30.1) 10/07/2024 Allergic rhinitis due to pollen (ICD-10 - J30.1) 11/11/2024 Allergic rhinitis due to pollen (ICD-10 - J30.1) 12/08/2024 Allergic rhinitis due to pollen (ICD-10 - J30.1) 12/08/2024 Allergic rhinitis due to animal (cat) (dog) hair and dander (ICD-10 - J30.81) 11/11/2024 Allergic rhinitis due to animal (cat) (dog) hair and dander (ICD-10 - J30.81) 10/07/2024 Allergic rhinitis due to animal (cat) (dog) hair and dander (ICD-10 - J30.81) 09/07/2024 Allergic rhinitis due to animal (cat) (dog) hair and dander (ICD-10 - J30.81) 08/10/2024 Allergic rhinitis due to animal (cat) (dog) hair and dander (ICD-10 - J30.81) 07/13/2024 Allergic rhinitis due to animal (cat) (dog) hair and dander (ICD-10 - J30.81) 07/06/2024 Other allergic rhinitis (ICD-10 - J30.89) 06/23/2024 Allergic rhinitis due to animal (cat) (dog) hair and dander (ICD-10 - J30.81) 05/26/2024 Allergic rhinitis due to animal (cat) (dog) hair and dander (ICD-10 - J30.81) 04/20/2024 Allergic rhinitis due to animal (cat) (dog) hair and dander (ICD-10 - J30.81) 04/13/2024 Allergic rhinitis due to animal (cat) (dog) hair and dander (ICD-10 - J30.81) 04/06/2024 Allergic rhinitis due to animal (cat) (dog) hair and dander (ICD-10 - J30.81) 03/02/2024 Other allergic rhinitis (ICD-10 - J30.89) 03/02/2024 Other chronic allergic conjunctivitis (ICD-10 - H10.45) Given ocular signs and symptoms I encouraged allergy avoidance measures and meds as above. Continue intraocular antihistamine/m ast cell stabilizer, PRN and continue SCIT as an adjunctive measure 03/13/2024 Other chronic allergic conjunctivitis (ICD-10 - H10.45) 04/06/2024 Other allergic rhinitis (ICD-10 - J30.89) 04/13/2024 Other allergic rhinitis (ICD-10 - J30.89) 04/20/2024 Other allergic rhinitis (ICD-10 - J30.89) 05/26/2024 Other allergic rhinitis (ICD-10 - J30.89) 06/23/2024 Other allergic rhinitis (ICD-10 - J30.89) 07/06/2024 Other chronic allergic conjunctivitis (ICD-10 - H10.45) Given ocular signs and symptoms I encouraged allergy avoidance measures and meds as above. Continue intraocular antihistamine/m ast cell stabilizer, PRN and continue SCIT as an adjunctive measure 07/13/2024 Other allergic rhinitis (ICD-10 - J30.89) 08/10/2024 Other allergic rhinitis (ICD-10 - J30.89) 09/07/2024 Other allergic rhinitis (ICD-10 - J30.89) 10/07/2024 Other allergic rhinitis (ICD-10 - J30.89) 11/11/2024 Other allergic rhinitis (ICD-10 - J30.89) 12/08/2024 Other allergic rhinitis (ICD-10 - J30.89) 12/08/2024 Other chronic allergic conjunctivitis (ICD-10 - H10.45) 11/11/2024 Other chronic allergic conjunctivitis (ICD-10 - H10.45) 10/07/2024 Other chronic allergic conjunctivitis (ICD-10 - H10.45) 09/07/2024 Other chronic allergic conjunctivitis (ICD-10 - H10.45) 08/10/2024 Other chronic allergic conjunctivitis (ICD-10 - H10.45) 07/13/2024 Other chronic allergic conjunctivitis (ICD-10 - H10.45) 07/06/2024 Shortness of breath (ICD-10 - R06.02) SOB [...] continue to monitor. Cotinue SCIT as above 06/23/2024 Other chronic allergic conjunctivitis (ICD-10 - H10.45) 05/26/2024 Other chronic allergic conjunctivitis (ICD-10 - H10.45) 04/20/2024 Other chronic allergic conjunctivitis (ICD-10 - H10.45) 04/13/2024 Other chronic allergic conjunctivitis (ICD-10 - H10.45) 04/06/2024 Other chronic allergic conjunctivitis (ICD-10 - H10.45) 03/13/2024 Shortness of breath (ICD-10 - R06.02) 03/02/2024 Shortness of breath (ICD-10 - R06.02) SOB described as difficulty getting air in, with associated wheezing when running outside - Initial Spirometry is normal with FVL suggestive of VCD and slight small airway obstruction. VCD handout already provided - She has felt benefit with use of VCD exercises. Generally using EBONI ocne a month with resoluton. If EBONI use persists consider addition of Singulair and/or ICS trial if symptoms worsen given she has history of allergen induced symptoms as well. Will continue to monitor. Cotinue SCIT as above Plan Of Treatment No Information Insurance Providers Payer Name Payer Address Payer Phone Subscriber Number Group Number Insured Name Patient Relationship to Insured Coverage Start Date Coverage End Date [facility] [id number] [place] [address] [phone] [id number] Seb Boyd Spouse - patient is the spouse of the insured 4 Medical (General) History Medical History History ICD Code exercise asthma induced Allergic rhinitis due to pollen J30.1 Allergic rhinitis due to animal (cat) (d og) hair and dander J30.81 Other allergic rhinitis J30.89 Other chronic allergic conjunctivitis H1 0.45 Shortness of breath R06.02 Surgical History Surgery Date(Month/Year) Hospitalization History Reason Date(Month/Year)
--- OUTSIDE RECORDS SUMMARY | 2025-02-16 16:18 | XMS_ITS ---
Author Organization [facility] ([address]) Address [address] [place] [address] Care Team Providers Care Manager Post Name Role Phone Mario Jorgensen Unavailable [phone] Jojo Carbone Unavailable [phone] REASON FOR VISIT ARC follow-up Encounters Encounter Location Date Provider Diagnosis [facility] [address] [place] [address] 01/04/2025 Jojo Carbone Plan Of Treatment No Information Progress Notes * Sinan BOYDB: 5 (30 yo F)Acc No.[id number]:01/04/2025 Progress Notes Patient: Tri OSBORN Provider: MILTON Greene :1995 A ge:29 Y S ex:Female Date:01/04/2025 Address:[address] [place], [place] [id number] Subjective: * Chief Complaints: * 1 . ARC follow-up. * Medical History: Objective: * Vitals: Assessment: Plan: * Treatment: * Billing Information: * Visit Code: * Procedure Codes: * Electronic signature of Jojo Carbone DNP, FNP-C on 02/16/2025 at 04:18 PM CDT Sign off status: Pending * Provider: MILTON Greene Date: 0 01/04/2025 Generated for Printi ng/Akbar/Sachinitting on: 0 02/16/2025 04:18 PM CDT
--- OUTSIDE RECORDS SUMMARY | 2025-02-16 16:18 | XMS_ITS | Referral Summary ---
Author Organization [facility] [address] [facility] Address [address] [facility] [address] Care Team Providers Care Optimization Consultant Name Role Phone Unknown, Notinfile Primary Care [...] on file Sexual Orientation Not on file Last Filed Vital Signs Vital Sign Reading [...] 01/26/2023 9:24 AM CDT Plan of Treatment Not on file Insurance [facility] [employer] Care Teams Optimization Consultant Relationship Specialty Start Date End Date Unknown, Notinfile PCP - General 01/26/23
[2025-02-16 16:49] LABS: Basophils Percent Auto 0.3 % (0.2-1.2); Eosinophils Absolute Auto 0.2 K/mm3 (0-0.3); Eosinophils Percent Auto 1.7 % (0-4.4); Hematocrit 35.5 % (37.0-47.0); Hemoglobin 11.7 g/dL (12.0-15.0); Immature Granulocyte Absolute 0.07 K/mm3 (0.00-0.031); Immature Granulocyte Percent A 0.6 % (0-0.5); Lymphocytes Absolute Auto 2.02 K/mm3 (0.9-3.2); Lymphocytes Percent Auto 16.9 % (18.3-44.2); Mean Corpuscular Hemoglobin 31.2 pg (26-34); Mean Corpuscular Volume 94.7 fl (80-100); Monocytes Absolute Auto 1.1 K/mm3 (0.1-0.6); Neutrophils Absolute Auto 8.5 K/mm3 (1.3-6.7); Neutrophils Percent Auto 71.5 % (45.5-73.1); Platelet Count Result 225 k/mm3 (150-375); Red Blood Count 3.75 M/mm3 (4.2-5.4); Red Cell Distribution Width 13.6 % (11.5-14.5); White Blood Count 11.9 K/mm3 (4.5-10.0)
[2025-02-16] MEDS: LACTATED RINGERS 1,000 ML 125 ML IV CONT ×2 (17:15→22:59)
[2025-02-16] MEDS: OXYTOCIN 30 UNITS/NS 500 ML 30 UNITS/500 ML BAG 6 UNITS IV CONT (17:15)
[2025-02-16 17:37] LABS: Syphilis IgG/IgM Antibody Negative (Negative)
[2025-02-16 17:50] LABS: HIV 1/2 Ab P24 Ag Result Negative (Negative)
--- NOTE | 2025-02-16 20:22 | WPDOBADMIT ---
Obstetrics - Admit Note Admission Note: record reviewed. No pertinent additions to the history and/or any subsequent changes in the physical findings that are not consistent with the expected course of the were found. Additions to the history and/or subsequent changes in the physical findings follow. None.Here for MIL. Cervix 250/-2 AROM with clear fluid. FHTs Reactive. Pitocin infusing. Plans epidural
--- NOTE | 2025-02-16 23:10 | WPDANESEPP ---
Anes - Eval Pre Procedure Procedure: labor pain management Date/Time: 02/16/25 23:10 Surgeon: Cecily Preop Diagnosis: pain during labor Pre Op Diagnosis: IOL Patient Data Age: 30 Gender: F Height: 1.8 m Weight: 118 kg Last Vital Signs Temp 97.5 F L 02/16/25 16:53 Pulse 84 02/16/25 23:01 BP 110/57 L 02/16/25 23:01 O2 Del Method Room Air 02/16/25 16:40 Allergies Allergy/AdvReac Type Severity Reaction Status Date / Time No Known Allergies Allergy Verified 01/18/25 12:43 Home Medications ?Medication ?Instructions ?Recorded ?Confirmed ?Type cetirizine 10 mg tablet (Allergy 10 mg PO DAILY PRN allergy symptoms 01/18/25 02/16/25 History Relief (cetirizine)) metformin 1,000 mg tablet 1,000 mg PO BID 01/18/25 02/16/25 History fmpqartn-wai-Ws-FA 1 mg tablet PO 01/18/25 History tablet Laboratory Tests 02/16/25 02/16/25 16:31 16:32 WBC 11.9 H K/mm3 (4.5-10.0) RBC 3.75 L M/mm3 (4.2-5.4) Hgb 11.7 L g/dL (12.0-15.0) Hct 35.5 L % (37.0-47.0) MCV 94.7 fl (80-100) MCH 31.2 pg (26-34) MCHC 33.0 g/dl (32-36) RDW 13.6 % (11.5-14.5) Plt Count 225 k/mm3 (150-375) MPV 10.0 fl (7.4-10.4) Immature Gran % (Auto) 0.6 H % (0-0.5) Neut % (Auto) 71.5 % (45.5-73.1) Lymph % (Auto) 16.9 L % (18.3-44.2) [place] % (Auto) 9.0 H % (2.6-8.5) Eos % (Auto) 1.7 % (0-4.4) Baso % (Auto) 0.3 % (0.2-1.2) Lymph # (Auto) 2.02 K/mm3 (0.9-3.2) [place] # (Auto) 1.1 H K/mm3 (0.1-0.6) Eos # (Auto) 0.2 K/mm3 (0-0.3) Baso # (Auto) 0.0 K/mm3 (0.0-0.1) Abs Immat Gran (auto) 0.07 H K/mm3 (0.00-0.031) Absolute Neuts (auto) 8.5 H K/mm3 (1.3-6.7) Absolute Nucleated RBC 0.000 K/mm3 (0.0-0.012) Nucleated RBC % 0.0 % (0.0-0.2) Syphilis IgG/IgM Ab Negative (Negative) HIV 1&2 Ab/P24 Ag 4thGn Negative (Negative) Blood Type A Positive Antibody Screen Negative Patient hx anesthesia problems: none Family hx anesthesia problems: none Results Review: All pre-operative results and documents have been reviewed as part of the pre-operative evaluation. [facility] Family History Family History Father Heart valve replaced Social History Social History Smoking status: Never smoker Second hand tobacco smoke exposure: No Substance use: never Do You Feel Safe in your Home?: Yes Lack of Transportation: No Lack of Food: Never True Current Housing: I Have Housing Concerned About Future Housing: No Difficulty Paying Gas/Electric Bills: No Difficulty Paying for Meds: No Currently Unemployed: No Education: Master's Degree or Higher Difficulty w/ Childcare or Family Care: No Spiritual care concerns: No Exam Day of Procedure 02/16/25 23:10
[2025-02-17] VITALS (114 sets, daily range): BP systolic 83–149; BP diastolic 36–100; PULSE 59–132; RESP 16–18; TEMP 36.2–37.1; O2SAT 94–100
[2025-02-17] MEDS: SODIUM CHLORIDE 0.9% IV 300 ML 600 ML I-UTERINE (04:30)
[2025-02-17] MEDS: SODIUM CHLORIDE 0.9% IV 1,000 ML 150 ML I-UTERINE (05:02)
[2025-02-17] MEDS: OXYTOCIN 30 UNITS/NS 500 ML 30 UNITS/500 ML BAG 999 UNITS IV CONT (07:13)
--- NOTE | 2025-02-17 07:25 | PM.OBPRVD ---
OB - Vaginal Delivery Note Procedure Delivery date: 02/17/25 Intrapartal Events: Decelerations (variables) Induction method: AROM and Per Pitocin Protocol Delivery monitor: External FHT and Internal Uterine Route of delivery: Episiotomy description: None Laceration Description: Perineal - 2nd Degree Delivery repair: vicryl (3-0) Specimen: No Quantitative Blood Loss (ml): 150 Anesthesia type: Epidural Disposition: Floor Complications: No immediate complications Baby Date of : 02/17/25 gender: Female presentation: vertex position: Right Occiput Anterior Placenta delivery description: Spontaneous Cord Vessel Description: 3 Vessels, Nuchal Cord (tight x 2) and Delayed Cord Clamping score one minute: 8 score five minutes: 9
--- NOTE | 2025-02-17 07:27 | P.DS_ITS ---
DS: Admitting Diagnosis Discharge Date 02/19/25 <Hazel Tony MD - Last Filed: 02/18/25 07:27> Admitting Diagnosis IUP 39 wks <Hazel Tony MD - Last Filed: 02/18/25 07:27> DS: Discharge Diagnosis Discharge Diagnosis (1) (normal spontaneous vaginal delivery): Code(s): O80 - Encounter for full-term uncomplicated delivery <Hazel Tony MD - Last Filed: 02/18/25 07:27> Status: Acute <Hazel Tony MD - Last Filed: 02/18/25 07:27> OB - DS: Summary Hospital Course Hospital Course: Patient underwent spontaneous vaginal delivery on 02/17/2025. Her hospital course unremarkable. She remained afebrile. She was up, voiding without difficulty, eating regular diet, ambulating, and generally without complaints. <Hazel Tony MD - Last Filed: 02/18/25 07:27> OB Procedures : Ultrasound <Hazel Tony MD - Last Filed: 02/18/25 07:27> OB Procedures Intrapartum: Spontaneous Vag Delivery <Hazel Tony MD - Last Filed: 02/18/25 07:27> OB Procedures: : None <Hazel Tony MD - Last Filed: 02/18/25 07:27> Peripartum Data Infant Delivery Method: Natural Vaginal <Hazel Tony MD - Last Filed: 02/18/25 07:27> Laceration Description: Perineal - 2nd Degree <Hazel Tony MD - Last Filed: 02/18/25 07:27> Episiotomy description: None <Hazel Tony MD - Last Filed: 02/18/25 07:27> complications: none <Hazel Tony MD - Last Filed: 02/18/25 07:27> Status at Discharge Functional status at discharge: independent ambulation <Hazel Tony MD - Last Filed: 02/18/25 07:27> Overall status at discharge: patient is progressing back to baseline <Hazel Tony MD - Last Filed: 02/18/25 07:27> Time Spent with Patient Time attestation: Total time spent providing and/or coordinating discharge services: <Hazel Tony MD - Last Filed: 02/18/25 07:27> Exam : Bimanual exam- vagina & uterus: other (Uterus firm, nt @U) <Len Jama MD - Last Filed: 02/19/25 07:21> DS: Data Data Completed and Pending Labs on day of discharge: Labs from last 24 hours 02/16/25 02/16/25 16:32 16:31 WBC 11.9 H RBC 3.75 L Hgb 11.7 L Hct 35.5 L MCV 94.7 MCH 31.2 MCHC 33.0 RDW 13.6 Plt Count 225 MPV 10.0 Immature Gran % (Auto) 0.6 H Neut % (Auto) 71.5 Lymph % (Auto) 16.[address] [place] % (Auto) 9.0 H Eos % (Auto) 1.7 Baso % (Auto) 0.3 Lymph # (Auto) 2.02 [place] # (Auto) 1.1 H Eos # (Auto) 0.2 Baso # (Auto) 0.0 Abs Immat Gran (auto) 0.07 H Absolute Neuts (auto) 8.5 H Absolute Nucleated RBC 0.000 Nucleated RBC % 0.0 Syphilis IgG/IgM Ab Negative HIV 1&2 Ab/P24 Ag 4thGn Negative Blood Type A Positive Antibody Screen Negative <Hazel Tony MD - Last Filed: 02/18/25 07:27> Discharge Plan Discharge Attending physician on discharge: Hazel Tony <Hazel Tony MD - Last Filed: 02/18/25 07:27> Hazel Tony <Len Jama MD - Last Filed: 02/19/25 07:21> Discharging Clinician: Len Camp <Hazel Tony MD - Last Filed: 02/18/25 07:27> Len Camp <Len Jama MD - Last Filed: 02/19/25 07:21> Anticipated Discharge Date/Time: 02/19/25 07:29 <Hazel Tony MD - Last Filed: 02/18/25 07:27> Patient Disposition: Home <Hazel Tony MD - Last Filed: 02/18/25 07:27> Activity: may shower and pelvic rest <Hazel Tony MD - Last Filed: 02/18/25 07:27> may shower and pelvic rest <Len Jama MD - Last Filed: 02/19/25 07:21> Diet: regular <Hazel Tony MD - Last Filed: 02/18/25 07:27> regular <Len Jama MD - Last Filed: 02/19/25 07:21> Patient Instructions: Antibiotic Form <Hazel Tony MD - Last Filed: 02/18/25 07:27> Patient Language: Estonian <Hazel Tony MD - Last Filed: 02/18/25 07:27> Stand Alone Forms: General Discharge Information <Hazel Tony MD - Last Filed: 02/18/25 07:27> Follow-up/Referrals: Hazel Tony MD [Physician] - 6 Weeks <Hazel Tony MD - Last Filed: 02/18/25 07:27> Discharge Medications: Continued [id number] 1 mg tablet PO cetirizine [Allergy Relief (cetirizine)] 10 mg tablet 10 mg PO DAILY PRN (Reason: allergy symptoms) metformin 1,000 mg tablet 1,000 mg PO BID <Hazel Tony MD - Last Filed: 02/18/25 07:27> Date of admission: 02/16/25 16:14 <Hazel Tony MD - Last Filed: 02/18/25 07:27> Primary Care Provider: PHYSICIAN,SHIP DESIGN TEACHER <Hazel Tony MD - Last Filed: 02/18/25 07:27> Admitting Provider: Hazel Tony <Hazel Tony MD - Last Filed: 02/18/25 07:27> Attending physician on admission: Hazel Tony <Hazel Tony MD - Last Filed: 02/18/25 07:27> Condition: Stable <Hazel Tony MD - Last Filed: 02/18/25 07:27>
[2025-02-17] MEDS: IBUPROFEN 600 MG TABLET PO ×2 (08:46→16:03)
[2025-02-17] MEDS: ACETAMINOPHEN 325 MG TABLET 650 MG PO ×2 (08:46→16:02)
[2025-02-17] MEDS: WITCH HAZEL 40 PADS 1 PAD TOPICAL (10:28)
[2025-02-17] MEDS: BENZOCAINE 20% AER SPR (*SP) 56 GM CAN 1 SPRAY TOPICAL (10:28)
--- NOTE | 2025-02-17 12:10 | PC.NURSE ---
Introductions were made, then consulted with patient to assess needs related to . Discussed with mother her?plans to feed?her and the?experience so far. She has fed twice since delivery and feels that it is going well. She states that her nipples are bruised but that she did not experience pain during feeding and that she tends to bruise easily. Resources provided for inpatient and outpatient services with the feeding sheet, mom/baby guide and name written on the communication board. Mother voiced understanding of information and will call if there is a request for assistance. Reported to the Primary RN.
--- NOTE | 2025-02-17 13:00 | PC.NURSE ---
Patient requested assistance. Mom has very large breasts and small, flat nipples. Her nipples do frida slightly when rolled. We used a modified football position to prevent the weight of mom's breast from laying on top of baby. Baby was eager and made several attempts to latch. She would latch and suck a few times, but would lose the latch when she paused. We adjusted baby a little more to the side of mom and baby was able to latch deeply with a compressed breast 'sandwich'. Once baby got the deeper latch, she was able to maintain it consistently. She suckled in short bursts, paused, and then resumed suckling. She needed occasional stimulation to suckle. Swallows heard while baby nursed. Mom states she does not have any pain with the latch. She could possibly benefit from a nipple shield if she is unable to replicate the breast 'sandwich' independently. She holds her breast very well and is attentive to education. Father of baby present and supportive. RN updated.
--- NOTE | 2025-02-17 13:03 | OBPPTRN ---
1044-Patient transferred to post room #283 via wheelchair. Support person present. Oriented to unit, room, information board, rooming in, admission packet and security measures. Patient verbalizes understanding.
[2025-02-17] MEDS: metFORMIN HCL 500 MG TABLET 1000 MG PO (16:06)
[2025-02-17] MEDS: DOCUSATE SODIUM 100 MG CAPSULE PO (16:06)
[2025-02-18] MEDS: IBUPROFEN 600 MG TABLET PO ×4 (02:30→19:31)
[2025-02-18] MEDS: ACETAMINOPHEN 325 MG TABLET 650 MG PO ×3 (02:30→16:20)
[2025-02-18 04:00] VITALS: BP 112/70; PULSE 96; RESP 18; TEMP 36.6; O2SAT 97
[2025-02-18 05:40] LABS: Hematocrit 32.4 % (37.0-47.0); Hemoglobin 10.6 g/dL (12.0-15.0)
--- NOTE | 2025-02-18 07:26 | P.PNOB_ITS ---
OB - PN: Subj Subjective Date/time seen: 02/18/25 07:26 Patient comments: no complaints and pain well controlled baby status: other (nursing poorly) OB - PN: Obj Data Labs 02/18/25 04:21 Labs: Laboratory Results - last 24 hr 02/18/25 04:21 Hgb 10.6 L Hct 32.4 L OB - PN A/P Plan day: 1 Plan: routine care Time Spent With Patient Time: Total time spent is greater than 50% in coordination of care (as documented) at patient's floor/unit and/or counseling patient: Exam 2 : Bimanual exam- vagina & uterus: other (Uterus firm, nt @U)
[2025-02-18 08:00] VITALS: PULSE 81; RESP 17; O2SAT 97
[2025-02-18 08:05] VITALS: BP 116/72; PULSE 81; RESP 17; TEMP 36.4; O2SAT 97
--- NOTE | 2025-02-18 08:05 | PC.NURSE ---
Patient called this RN to bedside to assist with setting up her [employer] breast pump. Instructions given on cleaning, care, usage, that there should be no pain, pumping schedule for milk production, collection, and storage of human milk. Patient was assessed for correct placement, flange size, to pump for comfort and nipple stretching/stimulation for adequate milk production every 3 hours (8 times in 24 hours) 1-2 times at night. Nipple measurement - 18mm. Flange size - 21mm. Parents are encouraged to record the pumping schedule on the feeding sheet.?Mother voiced understanding of the education shared along with mom/baby guide and the pump measurement, flange fit handout for additional resource information. Reported to the Primary RN.
--- NOTE | 2025-02-18 08:10 | WPDANLDPN2 ---
Anes-Prog Note L&D Date/Time: 02/18/25 08:10 Comfortable throughout: labor and delivery Neuraxial method: epidural Epidural/Spinal procedure site: clean & non-tender Neuro status: Neuro function grossly intact. Cardiovascular status: normal Respiratory status: normal Airway patency: baseline Mental status: baseline Vital Signs: Last Vital Signs Temp 36.6 C 02/18/25 04:00 Pulse 96 02/18/25 04:00 Resp 18 02/18/25 04:00 BP 112/70 02/18/25 04:00 Pulse Ox 97 02/18/25 04:00 O2 Del Method Room Air 02/17/25 10:45 Pain score (VAS): 0 Patient feedback: Patient satisfied with anesthetic care.
--- NOTE | 2025-02-18 08:11 | WPDANLDPN2 ---
Anes-Prog Note L&D Date/Time: 02/18/25 08:11 Comfortable throughout: labor and delivery Neuraxial method: epidural Epidural/Spinal procedure site: clean & non-tender Neuro status: Neuro function grossly intact. Cardiovascular status: normal Respiratory status: normal Airway patency: baseline Mental status: baseline Vital Signs: Last Vital Signs Temp 36.6 C 02/18/25 04:00 Pulse 96 02/18/25 04:00 Resp 18 02/18/25 04:00 BP 112/70 02/18/25 04:00 Pulse Ox 97 02/18/25 04:00 O2 Del Method Room Air 02/17/25 10:45 Pain score (VAS): 0 Patient feedback: Patient satisfied with anesthetic care.
[2025-02-18] MEDS: MULTIVIT/MIN/PREN/FOL AC/IRON TABLET 1 TAB PO (09:07)
[2025-02-18] MEDS: DOCUSATE SODIUM 100 MG CAPSULE PO ×2 (09:07→16:20)
[2025-02-18] MEDS: metFORMIN HCL 500 MG TABLET 1000 MG PO ×2 (09:08→16:19)
[2025-02-18 19:30] VITALS: BP 123/81; PULSE 99; RESP 18; TEMP 36.9; O2SAT 99
--- NOTE | 2025-02-19 07:21 | P.PNOB_ITS ---
OB - PN: Subj Subjective Date/time seen: 02/19/25 07:21 Patient comments: no complaints, pain well controlled and tolerating diet [place] baby status: doing well OB - PN: Obj Data Labs 02/18/25 04:21 OB - PN A/P Assessment and Plan (1) (normal spontaneous vaginal delivery): Code(s): O80 - Encounter for full-term uncomplicated delivery Status: Acute Plan Home follow up 5-6 weeks Time Spent With Patient Time: Total time spent is greater than 50% in coordination of care (as documented) at patient's floor/unit and/or counseling patient: Exam 2 : Bimanual exam- vagina & uterus: other (Uterus firm, nt @U)
--- NOTE | 2025-02-19 07:30 | PC.NURSE ---
Patient viewed the discharge video Mother & Baby Care, The First Two Weeks . Patient was given the opportunity and encouraged to ask questions. Patient verbalized understanding of information shared and has been given the mother/baby guide for home reference.
[2025-02-19] MEDS: ACETAMINOPHEN 325 MG TABLET 650 MG PO (07:35)
[2025-02-19] MEDS: IBUPROFEN 600 MG TABLET PO (07:35)
[2025-02-19] MEDS: metFORMIN HCL 500 MG TABLET 1000 MG PO (07:36)
[2025-02-19] MEDS: LANOLIN (LANSINOH) 7.5 GM CREAM 1 APPLIC TOPICAL (07:37)
[2025-02-19] MEDS: DOCUSATE SODIUM 100 MG CAPSULE PO (07:37)
[2025-02-19] MEDS: MULTIVIT/MIN/PREN/FOL AC/IRON TABLET 1 TAB PO (07:37)
[2025-02-19 07:41] VITALS: BP 122/80; PULSE 82; RESP 18; TEMP 36.1; O2SAT 97
[2025-02-21 10:31] VITALS: BP 129/78; PULSE 90; RESP 18; TEMP 37; O2SAT 100
== END 2025-02-19 12:46 | disposition home or self-care (01) | DRG 807 ==
LOC: ANHLDR 02-22 10:57 → ANHOB2 02-22 10:57
PROVIDERS: Admitting Provider Obstetrics & Gynecology Gynecology; Visit Provider Obstetrics & Gynecology
DX: O76 Abnormality in fetal heart rate and rhythm complicating labor and delivery (principal); Z37.0 Single live birth; O70.1 Second degree perineal laceration during delivery; O69.1XX0 Labor and delivery complicated by cord around neck, with compression, not applicable or unspecified; Z3A.39 39 weeks gestation of pregnancy
CPT/HCPCS: 36415; 85014; 85018; 85025; 86593; 86703; 86850; 86900; 86901; A9270; G0432; J2590; J2795; J7030; J7120